=== PATIENT | female | born 2000 | race Asian ===

== ENCOUNTER 2024-08-29 14:32 | Emergency (ER) | payer OTHER, SELFPAY ==
[2024-08-29 15:06] VITALS: BP 140/96; PULSE 79; RESP 18; TEMP 36.6; O2SAT 98
[2024-08-29 15:09] VITALS: BMI 27.8
--- NOTE | 2024-08-29 15:11 | EDNOTE_ITS ---
ED Chest Pain RME/HPI General Chief Complaint: Abdominal Pain Stated Complaint: LEFT SIDE UPPER ABDOMINAL PAIN Time Seen by Provider: 08/29/24 14:37 Arrival date/time: 08/29/24 14:32 Limitations: no limitations RME / HPI RME / HPI narrative: History of Present Illness (HPI) A 24-year-old female with no stated medical history presents to the ED with a complaint of left-sided chest/rib cage pain that began 3 days ago. The pain is described as sharp and has increased over the last 24 hours. The patient reports that the pain is aggravated by coughing and certain arm movements, with no known modifying factors. She denies any falls or injuries. She also denies experiencing fevers, chills, sweats, shortness of breath, abdominal pain, nausea, vomiting, diarrhea, or urinary symptoms. Differential Diagnoses (Ddx) * Costochondritis: Given the sharp, reproducible chest wall tenderness and the lack of systemic symptoms or cardiac risk factors. * Musculoskeletal Pain: Possible due to muscle strain or overuse. * Pleuritis: Inflammation of the pleura, though less likely without respiratory symptoms. * Tietze Syndrome: Similar to costochondritis, with swelling of the costal cartilage. * Gastrointestinal Causes: Such as GERD, though less likely given the absence of typical symptoms. Medical Decision Making (Mdm) * Pain Management: * [id number] medications such as NSAIDs for pain relief. * Patient Education: * Reassurance about the benign nature of costochondritis. * Instructions on avoiding activities that exacerbate symptoms. * Guidance on proper posture and movements to reduce strain on the chest wal l. * Return Precautions: * Advise the patient to return to the ED if symptoms worsen, persist, or if new symptoms develop (e.g., shortness of breath, fever, severe pain). * Follow-Up: * Recommend follow-up with the primary care provider if symptoms persist for further evaluation and management. Related Data Home Medications ?Medication ?Instructions ?Recorded ?Confirmed albuterol sulfate 90 mcg/actuation 2 puff inhalation Q6H PRN Wheezing 09/16/14 01/09/19 aerosol inhaler #0 inhalations beclomethasone dipropionate 40 1 puff inhalation BID 01/09/19 01/09/19 mcg/actuation HFA breath activated aerosol (Qvar RediHaler) ibuprofen 200 mg capsule 200 mg PO QID PRN Pain 01/09/19 01/09/19 Allergies Allergy/AdvReac Type Severity Reaction Status Date / Time No Known Allergies Allergy Verified 01/09/19 10:55 Review of Systems Review of Systems Systems Reviewed: All systems reviewed, normal except as documented Past Medical History Past Medical History RESPIRATORY: Positive Asthma (TAKES INHALER) Family History FAMILY HISTORY: Positive Family Respiratory Disorders (SISTER (ASTHMA)) and Family Surgery (MOTHER,SISTER); Negative Family Psychiatric Problems, Family Cardiac Disorders, Family Gastrointestinal Problems, Family Cancer or Family Anesthesia Reaction Surgical History SURGICAL: Positive Ear Surgery (LEFT) and Tympanostomy Tube (JORY) Social History SMOKING STATUS: Never smoker ED Exam General Limitations: Present no limitations General appearance: Present alert and in no apparent distress Head Head exam: Present atraumatic, normocephalic and normal inspection Eye Eye exam: Present normal appearance, PERRL and EOMI ENT ENT exam: Present normal exam, normal oropharynx and mucous membranes moist Neck Neck exam: Present normal inspection, full ROM and trachea midline Chest Chest inspection: Present symmetric chest wall rise and other (Reproducible chest wall tenderness at the junction of the left 5th rib and left sternal border ) Respiratory Respiratory exam: Present normal lung sounds bilaterally Cardiovascular Cardiovascular exam: Present regular rate, normal rhythm and normal heart sounds Abdominal Exam Abdominal exam: Present soft and normal bowel sounds Extremities Exam Extremities exam: Present normal inspection and full ROM Back Exam Back exam: Present normal inspection and full ROM Neurological Exam Neurological exam: Present alert, oriented X3 and CN II-XII intact Psychiatric Psychiatric exam: Present normal affect and normal mood Skin Skin exam: Present warm, dry, intact and normal color Course Quality Measures none Orders Category Date Time Status EKG (ED ONLY) *Do not use* NOW Care 08/29/24 15:12 Completed EKG (ED Only) Stat Exams 08/29/24 15:12 Ordered XR chest 2V Stat Exams 08/29/24 15:10 Completed CBC Stat Lab 08/29/24 15:25 Completed Comprehensive Metabolic Panel Stat Lab 08/29/24 15:25 Completed HCG,Qualitative Serum Stat Lab 08/29/24 15:25 Completed Troponin I Stat Lab 08/29/24 15:25 Completed Vital Signs Vital signs: Vital Signs Temperature 97.9 F 08/29/24 15:06 Pulse Rate 79 08/29/24 15:06 Respiratory Rate 18 08/29/24 15:06 Blood Pressure 140/96 H 08/29/24 15:06 Pulse Oximetry (%) 98 08/29/24 15:06 Oxygen Delivery Method Room Air 08/29/24 15:06 Pulse ox is 98% on room air which is adequate. Chest Pain MDM Narrative MDM Narrative:: Maggy Haq am scribing for and in the presence of Dr. Pope. Patient data External records reviewed:: [facility] previous records (I reviewed H&P on 01/09/2019) Clinical information provided by:: patient Social determinants that could affect healthcare access:: none Patient has the following chronic illnesses:: No stated medical history How is presenting disease/condition affected by chronic disease/condition?: no chronic disease Evaluation data The following diagnostics were reviewed and interpreted by me:: lab results, radiology exam(s) and EKG tracing(s) (Sinus rhythm, rate 77, nonspecific ST and T-wave changes, no STEMI. ) Lab and/or radiology exams considered but not ordered:: None Interpretation Summary: Ordering Physician: Lucius Pope MD Date of Service: 08/29/24 Procedure(s): XR chest 2V Accession Number(s): [id number] cc: Pedro Luis Head MD; Lucius Pope MD; Dieudonne Payan MD~ Examination: PA lateral chest 2 views Technique: Upright PA lateral chest 2 views Exam date and time: August 29, 2024 1541 hrs. Comparison October 28, 2018 Indications: Chest pain today, diagnosis costochondritis Findings: Normal heart size Pectus excavatum deformity Accentuation of the interstitial markings in the perihilar basilar regions Impression no pulmonary edema No lobar pneumonia Impression: Bronchitis pattern Dictated By: Dieudonne Payan MD Signed By: <Electronically signed by Dieudonne Payan MD in OV> 08/29/24 1615 Medications / Prescriptions Medications or Prescriptions considered but not ordered:: None Medication administrations:: None Consultations Consultation(s) initiated? (list below): No Diagnosis Chest Pain Differential Diagnosis: fracture of rib, pneumothorax, stable angina, atypical chest pain, costochondritis, chest pain and biliary colic Most likely diagnosis given after review of the tests above:: Acute costochondritis Admission Indicated Admission indicated?: not indicated Admission Request Was there a request for admission?: No Disposition Plan Disposition Plan: Discharge Discharge Attestation Discharge Attestation: The patient and all family members were given an opportunity to ask questions and understood the discharge instructions. Discharge instructions specifically effects, indications for sooner follow up or return to the emergency department, and the expected course of current diagnosis. Patient condition: Stable Discharge Plan Plan Patient Disposition: HOME (Self Care) Patient condition on transfer: Stable Prescriptions/Referrals Prescriptions/Med Rec: No Action albuterol sulfate 90 mcg/actuation Hfa Aerosol Inhaler 2 puff INHALATION Q6H PRN (Reason: Wheezing) Qty: 0 ibuprofen 200 mg Capsule 200 mg PO QID PRN (Reason: Pain) Qvar RediHaler 40 mcg/actuation Hfa Aerosol Breath Activated 1 puff INHALATION BID Referrals: Pedro Luis Head MD [Primary Care Provider] - In 1 week Problem List Clinical Impression: Acute costochondritis Patient/Caregiver Discharge Instructions Education Materials: ED Chest Wall Pain, Costochondritis Print Language: Martiniquais Stand Alone Forms: Ramya Award Info., Patient Portal Info Letter
[2024-08-29 15:48] LABS: Basophils # (Auto) 0.1 Thou/mm3 (0.0-0.2); Basophils % (Auto) 1 % (0-2.5); Eosinophils # (Auto) 0.4 Thou/mm3 (0.0-0.5); Eosinophils % (Auto) 5 % (0-10); Hematocrit 41.7 % (36.0-46.0); Hemoglobin 13.7 g/dL (12.0-16.0); Immature Granulocytes % (Auto) 0 % (0-0); Immature Granulocytes Auto 0.02 Thou/mm3 (0.00-0.00); Lymphocytes # (Auto) 1.8 Thou/mm3 (1.0-4.8); Lymphocytes % (Auto) 20 % (10-50); Mean Corpuscular HGB Conc 32.9 g/dl (31.0-37.0); Mean Corpuscular Hemoglobin 28.2 pg (25.0-35.0); Mean Corpuscular Volume 86 fL (80-100); Monocytes # (Auto) 0.7 Thou/mm3 (0.0-0.8); Monocytes % (Auto) 8 % (0-12); Neutrophils # (Auto) 6.2 Thou/mm3 (1.8-7.7); Neutrophils % (Auto) 67 % (37-80); Nucleated Red Blood Cell % 0 /100 WBC (0); Platelet Count 407 Thou/mm3 (140-440); RDW Standard Deviation 39.6 fL (36.4-46.3); Red Blood Count 4.85 Miln/mm3 (4.00-5.20); White Blood Count 9.3 Thou/mm3 (3.6-11.0)
[2024-08-29 16:09] LABS: Alanine Aminotransferase 10 U/L (10-49); Albumin, Serum 5.1 gm/dL (3.5-5.0); Albumin/Globulin Ratio 1.5 (1.2-2.2); Alkaline Phosphatase 93 U/L (46-116); Anion Gap 8 (7-16); Aspartate Amino Transferase 18 U/L (0-34); BUN/Creatinine Ratio 9 Ratio (12-20); Bilirubin,Total 0.3 mg/dL (0.3-1.2); Blood Urea Nitrogen 7 mg/dL (9-23); Carbon Dioxide 26.4 mMol/L (20.0-31.0); Chloride 102 mMol/L (98-107); Creatinine (Component) 0.8 mg/dL (0.6-1.3); Estimated Creatinine Clearance 94.8 mL/min (>60); Globulin 3.3 gm/dL (2.3-3.5); Glucose 94 mg/dL (74-106); Osmolality,Calculated 269 (275-295); Potassium 4.5 mMol/L (3.4-5.1); Sodium 136 mMol/L (136-145); Total Protein 8.4 gm/dL (5.7-8.2); Troponin I < 0.002 ng/mL (0.0-0.045); eGFR > 60 See Note
[2024-08-29 16:29] LABS: HCG,Qualitative Serum Negative
== END 2024-08-29 18:15 | disposition home or self-care (01) ==
PROVIDERS: Emergency Provider Emergency Medicine; PCP Family Medicine
DX: M94.0 Chondrocostal junction syndrome [Tietze] (principal); R94.31 Abnormal electrocardiogram [ECG] [EKG]
CPT/HCPCS: 36415; 71046; 80053; 84484; 84703; 85025; 93005; 99283